=== PATIENT | female | born 1950 | race Caucasian/White ===

== ENCOUNTER → 2018-01-26 17:39 | Outpatient (CLI) | payer OTHER | END | disposition home or self-care (01) | LOC: LAB 17:39 | DX: A49.2 Hemophilus influenzae infection, unspecified site (principal); J11.1 Influenza due to unidentified influenza virus with other respiratory manifestations ==

== ENCOUNTER 2023-03-21 07:20 | Outpatient (CLI) | payer OTHER | END 2023-03-21 07:22 | disposition home or self-care (01) | LOC: NUCLEAR 07:20 | PROVIDERS: ATTEND Internal Medicine | DX: I25.118 Atherosclerotic heart disease of native coronary artery with other forms of angina pectoris (principal); R06.9 Unspecified abnormalities of breathing; I11.9 Hypertensive heart disease without heart failure; E78.2 Mixed hyperlipidemia ==

== ENCOUNTER 2023-05-30 07:54 | Outpatient (CLI) | payer OTHER | END 2023-05-30 07:57 | disposition home or self-care (01) | LOC: NUCLEAR 07:54 | PROVIDERS: ATTEND Internal Medicine Pulmonary Disease | DX: R91.1 Solitary pulmonary nodule (principal); J43.2 Centrilobular emphysema | CPT/HCPCS: 78815; A9552 ==

== ENCOUNTER 2023-10-01 21:40 | Emergency (ER) | payer OTHER ==
[~2023-10-01] VITALS: Ht 162.6 cm; Wt 79.4 kg
[2023-10-01 22:07] LABS: HEMATOCRIT 37.4 % (36.0-45.00); HEMOGLOBIN 13.1 g/dL (12.0-15.00); MEAN CORPUSCULAR HGB CONC 34.9 g/dl (32.0-36.0); PLATELET COUNT 208 K/uL (150-450); RED BLOOD COUNT 4.51 M/uL (4.00-6.00); RED CELL DISTRIBUTION WIDTH 13.2 % (11.5-14.5)
[2023-10-01 22:33] LABS: CALCIUM 9.5 mg/dL (8.5-10.1); CREATININE SERUM 1.07 mg/dL (0.55-1.02); GFR 50.26; POTASSIUM 3.25 mEq/L (3.5-5.1)
[2023-10-02] MEDS ORDERED: PEPCID40 MG PO (00:16)
== END 2023-10-02 00:28 ==
LOC: ER
PROVIDERS: Emergency Medicine
DX: K29.70 Gastritis, unspecified, without bleeding (principal); R11.10 Vomiting, unspecified; I10 Essential (primary) hypertension
CPT/HCPCS: 36415; 96365; 99282; J2405

== ENCOUNTER 2025-07-17 08:52 | Outpatient (CLI) | payer OTHER ==
[~2025-07-17 08:52] MED LIST: PEPCID40 MG PO
== END 2025-07-17 08:53 | disposition home or self-care (01) ==
LOC: NUCLEAR 08:52
PROVIDERS: ATTEND Internal Medicine
DX: I11.9 Hypertensive heart disease without heart failure (principal)